=== PATIENT | female | born 1975 | race Caucasian/White ===

== ENCOUNTER 2018-01-20 19:00 | Emergency (ER) | END 2018-01-20 22:28 | disposition home or self-care (01) ==

== ENCOUNTER 2018-06-19 23:27 | Emergency (ER) | payer BC ==
[~2018-06-19] VITALS: Wt 79.3 kg
[~2018-06-19 23:27] MED LIST: ACET325T33 PO; BUTA1CAP39 PO; CEPH-443 PO; DOCU-144 PO; FAMO-96 PO; FER325 PO; FIORICET PO; HYDR-3498 PO; HYDR-3720 PO; IBUP-1542 PO; NAPR-985 PO; PROC10TA10 PO
[2018-06-20] MEDS ORDERED: ONDANSETRON 4 MG INJ IV STA (01:24)
[2018-06-20] MEDS ORDERED: morphine 4 MG/ML VIAL IV STA (01:24)
[2018-06-20] MEDS ORDERED: SOD CHLORIDE 0.9% 1,000 ML IV STA (01:24)
[2018-06-20] MEDS ORDERED: SUCR1TAB56 PO (02:59)
[2018-06-20] MEDS ORDERED: RANI150T35 PO (02:59)
[2018-06-20 03:28] VITALS: BP 110/70; PULSE 87; RESP 18
--- NOTE | 2018-07-30 01:29 | ERD ---
ER Documentation Chief Complaint Chief Complaint EPIGASTRIC PAIN X'S 4 DAYS; HX GASTRITIS HPI Is a very pleasant 43 with epigastric pain for days. Patient has history of gastritis patient feels like previous history of gastritis. Pain is mild to moderate intensity with burning sensation and pain of her stomach. No fevers no chills no nausea no vomiting. No other current complaints. ROS All systems reviewed and are negative except as per history of present illness. Medications Home Meds Active Scripts Ondansetron Hcl* (Zofran*) 4 Mg Tablet, 4 MG PO Q6H PRN for NAUSEA AND OR VOMITING, #20 TAB Prov:MATTHEW KIMBROUGH S. 06/27/18 Naproxen* (Naprosyn*) 500 Mg Tablet, 500 MG PO BID PRN for PAIN AND/OR INFLAMMATION, #30 TAB Prov:XIMENA AGGARWAL PA-C 06/22/18 Hydrocodone/Acetaminophen ([place] 5-325 Tablet) 1 Each Tablet, 1 TAB PO Q6H PRN for PAIN, #7 TAB Prov:XIMENA AGGARWAL PA-C 06/22/18 Cephalexin* (Keflex*) 500 Mg Capsule, 500 MG PO QID for 7 Days, CAP Prov:XIMENA AGGARWAL PA-C 06/22/18 Sulfamethoxazole/Trimethoprim* (Bactrim Ds* Tablet) 1 Each Tablet, 1 TAB PO BID, #14 TAB Prov:XIMENA AGGARWAL PA-C 06/22/18 Ranitidine Hcl* (Zantac*) 150 Mg Tablet, 150 MG PO BID PRN for EPIGASTRIC PAIN, #30 TAB Prov:MICHELLE CABRAL SHarlan 06/20/18 Sucralfate* (Carafate*) 1 Gm Tab, 1 GM PO QID, #60 TAB Prov:MICHELLE CABRAL S. 06/20/18 Allergies Allergies: Coded Allergies: No Known Drug Allergy (Verified Allergy, Unknown, 06/20/18) PMhx/Soc History of Surgery: Yes ([facility],Cholecystectomy, x1) Anesthesia Reaction: No Hx Neurological Disorder: Yes (Migraine HAs) Hx Respiratory Disorders: No Hx Cardiac Disorders: No Hx Psychiatric Problems: No Hx Miscellaneous Medical Probl: No Hx Alcohol Use: No Hx Substance Use: No Hx Tobacco Use: No Smoking Status: Never smoker Physical Exam Physical Exam Const: No acute distress Head: Atraumatic Eyes: Normal Conjunctiva ENT: Normal External Ears, Nose and Mouth. Neck: Full range of motion. No meningismus. Resp: Clear to auscultation bilaterally Cardio: Regular rate and rhythm, no murmurs Abd: Soft, non tender, non distended. Normal bowel sounds Skin: No petechiae or rashes Back: No midline or flank tenderness Ext: No cyanosis, or edema Neur: Awake and alert Psych: Normal Mood and Affect Results 24 hrs Laboratory Tests Test 06/20/18 01:43 White Blood Count 8.0 10^3/ul Red Blood Count 4.21 10^6/ul Hemoglobin 9.2 g/dl Hematocrit 30.9 % Mean Corpuscular Volume 73.4 fl Mean Corpuscular Hemoglobin 21.9 pg Mean Corpuscular Hemoglobin Concent 29.8 g/dl Red Cell Distribution Width 16.5 % Platelet Count 345 10^3/UL Mean Platelet Volume 9.8 fl Immature Granulocytes % 0.300 % Neutrophils % 59.3 % Lymphocytes % 28.1 % Monocytes % 9.5 % Eosinophils % 2.4 % Basophils % 0.4 % Nucleated Red Blood Cells % 0.0 /100WBC Immature Granulocytes # 0.020 10^3/ul Neutrophils # 4.7 10^3/ul Lymphocytes # 2.2 10^3/ul Monocytes # 0.8 10^3/ul Eosinophils # 0.2 10^3/ul Basophils # 0.0 10^3/ul Nucleated Red Blood Cells # 0.0 10^3/ul Urine Color YELLOW Urine Clarity SLIGHTLY CLOUDY Urine pH 7.0 Urine Specific [place] 1.017 Urine Ketones NEGATIVE mg/dL Urine Nitrite NEGATIVE mg/dL Urine Bilirubin NEGATIVE mg/dL Urine Urobilinogen NEGATIVE mg/dL Urine Leukocyte Esterase 3+ Concepcion/ul Urine Microscopic RBC 8 /HPF Urine Microscopic WBC 7 /HPF Urine Squamous Epithelial Cells FEW /HPF Urine Bacteria FEW /HPF Urine Hemoglobin 1+ mg/dL Urine Glucose NEGATIVE mg/dL Urine Total Protein NEGATIVE mg/dl Sodium Level 142 mmol/L Potassium Level 3.7 mmol/L Chloride Level 108 mmol/L Carbon Dioxide Level 26 mmol/L Anion Gap 8 Blood Urea Nitrogen 14 mg/dl Creatinine 0.65 mg/dl Est Glomerular Filtrat Rate mL/min > 60 mL/min Glucose Level 101 mg/dl Calcium Level 8.6 mg/dl Total Bilirubin 0.3 mg/dl Direct Bilirubin 0.00 mg/dl Indirect Bilirubin 0.3 mg/dl Aspartate Amino Transf (AST/SGOT) 17 IU/L Alanine Aminotransferase (ALT/SGPT) 28 IU/L Alkaline Phosphatase 60 IU/L Total Protein 7.0 g/dl Albumin 3.7 g/dl Globulin 3.30 g/dl Albumin/Globulin Ratio 1.12 Lipase 79 U/L Current Medications Medications Dose Sig/David Start Time Status Last (Trade) Ordered Route PRN Stop Time Admin Dose Reason Admin Sodium 1,000 ml @ Q1H STAT 06/20/18 DC 06/20/18 Chloride 1,000 mls/hr IV 01:24 01:39 06/20/18 02:23 Morphine 4 mg ONCE STAT 06/20/18 DC 06/20/18 Sulfate IV 01:24 01:40 (morphine) 06/20/18 01:26 Ondansetron 4 mg ONCE STAT 06/20/18 DC 06/20/18 HCl (Zofran IV 01:24 01:40 Inj) 06/20/18 01:26 Procedures/MDM Patient's gastrointestinal symptoms have stabilized while in the department. No evidence of severe dehydration, sepsis, or surgical abdomen. Extensive discussion with family and patient that occult disease cannot be ruled out. 8 hour recheck for repeat abdominal exam is planned. Departure Diagnosis: Primary Impression: Epigastric pain Condition: Stable Patient Instructions: Gastritis (Adult) MICHELLE CABRAL Jul 30, 2018 01:29
== END 2018-06-20 03:29 | disposition home or self-care (01) ==
LOC: E/R 23:27
DX: R10.13 Epigastric pain (principal)
CPT/HCPCS: 36415; 80053; 81001; 83690; 85025; 96361; 96374; 96375; J2270; J2405; J7030; Z7502

== ENCOUNTER 2018-06-22 11:34 | Emergency (ER) | payer BC ==
[~2018-06-22] VITALS: Wt 74.5 kg
[~2018-06-22 11:34] MED LIST changes: -ACET325T33 PO; -BUTA1CAP39 PO; -CEPH-443 PO; -DOCU-144 PO; -FAMO-96 PO; -FER325 PO; -FIORICET PO; -HYDR-3498 PO; -HYDR-3720 PO; -IBUP-1542 PO; -NAPR-985 PO; -PROC10TA10 PO; +RANI150T35 PO; +SUCR1TAB56 PO
[2018-06-22 11:37] VITALS: BP 120/57; PULSE 100; RESP 20
[2018-06-22] MEDS ORDERED: NAPR-985 PO (12:14)
[2018-06-22] MEDS ORDERED: HYDR-4011 PO (12:14)
[2018-06-22] MEDS ORDERED: SULF1TAB31 PO (12:14)
[2018-06-22] MEDS ORDERED: CEPH-443 PO (12:14)
[2018-06-22] MEDS ORDERED: CEFTRIAXONE 1 GM INJ IM ONE (12:30)
[2018-06-22] MEDS ORDERED: LIDOCAINE 1% (MPF) 5 ML VIAL INJ ONE (12:30)
--- NOTE | 2018-06-22 15:22 | ERD ---
ER Documentation Chief Complaint Chief Complaint R SIDE INGUINAL SWELLING FROM POSSIBLE BITE. NO DRAINAGE. HPI 43-year-old female presenting with inguinal swelling x2 days. Denies any numb ness or tingling but has extensive pain to the right upper thigh. Developed a low-grade fever earlier today. Took ibuprofen 6 hours prior to my evaluation. Denies vomiting. Denies medical problems. NKDA. Surgical history denies. Social history denies ROS All systems reviewed and are negative except as per history of present illness. Medications Home Meds Active Scripts Naproxen* (Naprosyn*) 500 Mg Tablet, 500 MG PO BID PRN for PAIN AND/OR INFLAMM ATION, #30 TAB Prov:XIMENA AGGARWAL PA-C 06/22/18 Hydrocodone/Acetaminophen ([place] 5-325 Tablet) 1 Each Tablet, 1 TAB PO Q6H PRN for PAIN, #7 TAB Prov:XIMENA AGGARWAL PA-C 06/22/18 Cephalexin* (Keflex*) 500 Mg Capsule, 500 MG PO QID for 7 Days, CAP Prov:XIMENA AGGARWAL PA-C 06/22/18 Sulfamethoxazole/Trimethoprim* (Bactrim Ds* Tablet) 1 Each Tablet, 1 TAB PO BID, #14 TAB Prov:XIMENA AGGARWAL PA-C 06/22/18 Ranitidine Hcl* (Zantac*) 150 Mg Tablet, 150 MG PO BID PRN for EPIGASTRIC PAIN, #30 TAB Prov:MICHELLE CABRAL. 06/20/18 Sucralfate* (Carafate*) 1 Gm Tab, 1 GM PO QID, #60 TAB Prov:MICHELLE CABRAL S. 06/20/18 Discontinued Scripts Acetamin/Butalbital/Caffeine* (Fioricet*) [id number] Tab, 1 TAB PO Q6H PRN for PAIN, #30 TAB Prov:DAVIDSON BOLANOS PA-C 01/20/18 Acetamin/Butalbital/Caffeine* (Fioricet*) [id number] Tab, 1 TAB PO Q6H PRN for PAIN, #10 TAB Prov:MARQUIS MISHRA PA-C 01/23/16 Acetamin/Butalbital/Caffeine* (Fioricet*) [id number] Tab, 1 TAB PO Q6H PRN for PAIN, #30 TAB Prov:XIMENA AGGARWAL PA-C 11/27/15 Prochlorperazine* (Prochlorperazine*) 10 Mg Tablet, 10 MG PO Q6 PRN for NAUSEA AND/OR VOMITING, #10 TAB Prov:LEKKOS,APOSTOLOS A. DO 08/14/15 Hydrocodone Bit-Acetaminophen* ([place]*) 7.5-325 Tablet, 2 TAB PO Q4H PRN for PAIN, #20 TAB Prov:LEKKOS,APOSTOLOS A. DO 08/14/15 Naproxen* (Naprosyn*) 500 Mg Tablet, 500 MG PO BID PRN for PAIN AND/OR INFLAMMATION, #30 TAB Prov:JOSE ANTONIO MAS PA-C 06/23/15 Cephalexin* (Keflex*) 500 Mg Capsule, 500 MG PO QID for 5 Days, CAP Prov:MELISSA BORJA METAL MODEL BUILDER 04/20/15 Ibuprofen* (Motrin*) 600 Mg Tab, 600 MG PO Q6H PRN for PAIN AND OR ELEVATED TEMP, #30 TAB Prov:MELISSA BORJA METAL MODEL BUILDER 04/20/15 Hydrocodone Bit-Acetaminophen* ([place]*) 5-325 Mg Tab, 1 TAB PO Q6 PRN for PAIN, #20 TAB Prov:MELISSA BORJA METAL MODEL BUILDER 04/20/15 Docusate Sodium* (Colace*) 100 Mg Capsule, 100 MG PO BID, #30 CAP Prov:XIMENA AGGARWAL PA-C 12/18/14 Ferrous Sulfate* (Ferrous Sulfate*) 325 Mg Tabec, 325 MG PO BID, #30 TAB Prov:XIMENA AGGARWAL PA-C 12/18/14 Acetaminophen* (Tylenol*) 325 Mg Tablet, 2 TAB PO Q8 PRN for PAIN AND OR ELEVATED TEMP, #20 TAB Prov:XIMENA AGGARWAL PA-C 12/18/14 Famotidine* (Pepcid*) 20 Mg Tablet, 20 MG PO BID for 4 Days, TAB Prov:XIMENA AGGARWAL PA-C 12/18/14 Zvgkqbhmzqjvf-Yzximufowq-Ygmaiong-Codeine* (Fioricet w/ Codeine*) [id number] Capsule, 1 CAP PO Q6H PRN for PAIN LEVEL 1-5, #20 CAP Prov:MELISSA BORJAHarlan CARVAJAL 10/13/14 Allergies Allergies: Coded Allergies: No Known Drug Allergy (Verified Allergy, Unknown, 06/20/18) PMhx/Soc History of Surgery: Yes (Appy,Cholecystectomy, x1) Anesthesia Reaction: No Hx Neurological Disorder: Yes (Migraine HAs) Hx Respiratory Disorders: No Hx Cardiac Disorders: No Hx Psychiatric Problems: No Hx Miscellaneous Medical Probl: No Hx Alcohol Use: No Hx Substance Use: No Hx Tobacco Use: No FmHx Family History: No diabetes, No coronary disease, No other Physical Exam Vitals Vital Signs Date Temp Pulse Resp B/P (MAP) Pulse Ox O2 O2 Flow FiO2 Time Delivery Rate 06/22/18 100.0 100 20 120/57 98 11:37 (78) Physical Exam GENERAL: The patient is well-appearing, well-nourished, in no acute distress CHEST: Clear to auscultation bilaterally. There are no rales, wheezes or rhonchi. HEART: Regular rate and rhythm. No murmurs, clicks, rubs or gallops. EXTREMITIES: Equal pulses bilaterally. There is no peripheral clubbing, cyanosis or edema. No focal swelling or erythema. Full range of motion. Grossly neurovascularly intact. NEUROLOGIC: Alert and oriented. Cranial nerves II through XII intact. Motor strength in all 4 extremities with 5 out of 5 strength. Sensation grossly intact. Normal speech and gait. Babinski negative. DTR 2+ throughout. SKIN: Erythema and induration noted to the right upper thigh with no fluctuance. No lymphatic streaking. Results 24 hrs Current Medications Medications Dose Sig/David Start Time Status Last (Trade) Ordered Route PRN Stop Time Admin Dose Reason Admin Ceftriaxone 1 gm ONCE ONCE 06/22/18 DC 06/22/18 Sodium IM 12:30 12:29 (Rocephin) 06/22/18 12:31 Lidocaine 5 ml ONCE ONCE 06/22/18 DC 06/22/18 (Xylocaine INJ 12:30 12:30 1% (Mpf)) 06/22/18 12:31 Procedures/MDM ER course: Rocephin given in ED. MDM: 43-year-old female presenting with abscess. Patient has cellulitis of the right upper thigh. There is no lymphatic streaking and I have low suspicion for sepsis at this time however patient is discharged with oral antibiotics and strict ER precautions. I recommended patient to use warm compresses at home and to return in 2 days. She is told her if symptoms worsen prior to that to return sooner she may need IV antibiotics. Patient will be trialed with oral outpatient antibiotics first. Patient was told she sees lymphatic streaking to return sooner. Patient is discharged with strict ER precautions and told to follow-up with primary care. All questions answered at discharge Departure Diagnosis: Primary Impression: Cellulitis Condition: Stable Patient Instructions: Cellulitis Referrals: [facility] YOU HAVE RECEIVED A MEDICAL SCREENING EXAM AND THE RESULTS INDICATE THAT YOU DO NOT HAVE A CONDITION THAT REQUIRES URGENT TREATMENT IN THE EMERGENCY DEPARTMENT. FURTHER EVALUATION AND TREATMENT OF YOUR CONDITION CAN WAIT UNTIL YOU ARE SEEN IN YOUR DOCTORS OFFICE WITHIN THE NEXT 1-2 DAYS. IT IS YOUR RESPONSIBILITY TO MAKE AN APPOINTMENT FOR [facility]. IF YOU HAVE A PRIMARY DOCTOR --you should call your primary doctor and schedule an appointment IF YOU DO NOT HAVE A PRIMARY DOCTOR YOU CAN CALL OUR PHYSICIAN REFERRAL HOTLINE AT IF YOU CAN NOT AFFORD TO SEE A PHYSICIAN YOU CAN CHOSE FROM THE FOLLOWING [facility] [address] [facility]. [facility] [address] [facility]. [facility] [address] [facility] [facility] [address] [facility]. [facility] [address]. [facility]. [address] Additional Instructions: FOLLOW UP WITH YOUR PRIMARY CARE PHYSICIAN TOMORROW.Return to this facility if you are not improving as expected. XIMENA AGGARWAL PA-C June 22, 2018 15:22
== END 2018-06-22 12:51 | disposition home or self-care (01) ==
LOC: FTE 11:34
DX: L03.115 Cellulitis of right lower limb (principal)
CPT/HCPCS: 96372; J0696; Z7502; Z7610

== ENCOUNTER 2018-06-24 11:31 | Inpatient (IN) | payer BC ==
[~2018-06-24] VITALS: Ht 162.6 cm; Wt 78.6 kg
[~2018-06-24 11:31] MED LIST changes: +CEPH-443 PO; +HYDR-4011 PO; +NAPR-985 PO; +SULF1TAB31 PO
[2018-06-24] MEDS ORDERED: KETOROLAC 30 MG INJ IV STA (12:29)
[2018-06-24] MEDS ORDERED: VANCOMYCIN 1 GM (PMX) 250 ML IVPB ONE (12:30)
[2018-06-24] MEDS ORDERED: PIPER-TAZO 3.375 GM IV (PMX) 100 ML IVPB ONE (12:30)
--- NOTE | 2018-06-24 12:40 | ERD ---
ER Documentation Chief Complaint Chief Complaint for recheck on rt thigh cellulitis HPI Patient is a 43-year-old female with no PMHX who presents the ER for concerns of recheck of right upper thigh cellulitis. Patient was seen here 2 days ago and prescribed Keflex and Bactrim. Patient states that the redness and swelling persist. She states that she has noticed some drainage from the affected area. Patient states she been taking antibiotics as prescribed. Patient states she continues to have a low-grade temperature with T-max of 100 Fahrenheit. Patient does report taking ibuprofen prior to arrival. Patient does admit to shaving the affected area. ROS All systems reviewed and are negative except as per history of present illness. Medications Home Meds Active Scripts Naproxen* (Naprosyn*) 500 Mg Tablet, 500 MG PO BID PRN for PAIN AND/OR INFLAMMATION, #30 TAB Prov:XIMENA AGGARWAL PA-C 06/22/18 Hydrocodone/Acetaminophen ([place] 5-325 Tablet) 1 Each Tablet, 1 TAB PO Q6H PRN for PAIN, #7 TAB Prov:XIMENA AGGARWAL PA-C 06/22/18 Cephalexin* (Keflex*) 500 Mg Capsule, 500 MG PO QID for 7 Days, CAP Prov:XIMENA AGGARWAL PA-C 06/22/18 Sulfamethoxazole/Trimethoprim* (Bactrim Ds* Tablet) 1 Each Tablet, 1 TAB PO BID, #14 TAB Prov:XIMENA AGGARWAL PA-C 06/22/18 Ranitidine Hcl* (Zantac*) 150 Mg Tablet, 150 MG PO BID PRN for EPIGASTRIC PAIN, #30 TAB Prov:MICHELLE CABRAL 06/20/18 Sucralfate* (Carafate*) 1 Gm Tab, 1 GM PO QID, #60 TAB Prov:MICHELLE CABRAL 06/20/18 Discontinued Scripts Acetamin/Butalbital/Caffeine* (Fioricet*) [id number] Tab, 1 TAB PO Q6H PRN for PAIN, #30 TAB Prov:DAVIDSON BOLANOS PA-C 01/20/18 Acetamin/Butalbital/Caffeine* (Fioricet*) [id number] Tab, 1 TAB PO Q6H PRN for PAIN, #10 TAB Prov:MARQUIS MISHRAC 01/23/16 Acetamin/Butalbital/Caffeine* (Fioricet*) [id number] Tab, 1 TAB PO Q6H PRN for PAIN, #30 TAB Prov:XIMENA AGGARWALC 11/27/15 Prochlorperazine* (Prochlorperazine*) 10 Mg Tablet, 10 MG PO Q6 PRN for NAUSEA AND/OR VOMITING, #10 TAB Prov:LEKKOS,APOSTOLOS A. DO 08/14/15 Hydrocodone Bit-Acetaminophen* ([place]*) 7.5-325 Tablet, 2 TAB PO Q4H PRN for PAIN, #20 TAB Prov:LEKKOS,APOSTOLOS A. DO 08/14/15 Naproxen* (Naprosyn*) 500 Mg Tablet, 500 MG PO BID PRN for PAIN AND/OR INFLAMMATION, #30 TAB Prov:JOSE ANTONIO MASC 06/23/15 Cephalexin* (Keflex*) 500 Mg Capsule, 500 MG PO QID for 5 Days, CAP Prov:MELISSA BORJA MANAGER MARKETING COMM[employer]ICATION 04/20/15 Ibuprofen* (Motrin*) 600 Mg Tab, 600 MG PO Q6H PRN for PAIN AND OR ELEVATED TEMP, #30 TAB Prov:MELISSA BORJA MANAGER MARKETING COMMUNICATION 04/20/15 Hydrocodone Bit-Acetaminophen* ([place]*) 5-325 Mg Tab, 1 TAB PO Q6 PRN for PAIN, #20 TAB Prov:MELISSA BORJA MANAGER MARKETING COMMUNICATION 04/20/15 Docusate Sodium* (Colace*) 100 Mg Capsule, 100 MG PO BID, #30 CAP Prov:XIMENA AGGARWAL PA-C 12/18/14 Ferrous Sulfate* (Ferrous Sulfate*) 325 Mg Tabec, 325 MG PO BID, #30 TAB Prov:XIMENA AGGARWAL PA-C 12/18/14 Acetaminophen* (Tylenol*) 325 Mg Tablet, 2 TAB PO Q8 PRN for PAIN AND OR ELEVATED TEMP, #20 TAB Prov:XIMENA AGGARWAL PA-C 12/18/14 Famotidine* (Pepcid*) 20 Mg Tablet, 20 MG PO BID for 4 Days, TAB Prov:KEELY AGGARWALMARKEL Benavides PA-C 12/18/14 Cqowlobyyjvcx-Taaxjmbtaj-Qdbuhbaa-Codeine* (Fioricet w/ Codeine*) [id number] Capsule, 1 CAP PO Q6H PRN for PAIN LEVEL 1-5, #20 CAP Prov:MELISSA BORJA NP 10/13/14 Allergies Allergies: Coded Allergies: No Known Drug Allergy (Verified Allergy, Unknown, 06/20/18) PMhx/Soc History of Surgery: Yes (Appy,Cholecystectomy, x1) Anesthesia Reaction: No Hx Neurological Disorder: Yes (Migraine HAs) Hx Respiratory Disorders: No Hx Cardiac Disorders: No Hx Psychiatric Problems: No Hx Miscellaneous Medical Probl: No Hx Alcohol Use: No Hx Substance Use: No Hx Tobacco Use: No Smoking Status: Never smoker FmHx Family History: No diabetes Physical Exam Vitals Vital Signs Date Temp Pulse Resp B/P (MAP) Pulse Ox O2 O2 Flow FiO2 Time Delivery Rate 06/24/18 97.6 88 18 118/56 99 11:32 (76) Physical Exam GENERAL: Well-developed, well-nourished female. Appears in no acute distress. HEAD: Normocephalic, atraumatic. EYES: Pupils are equally reactive bilaterally. EOMs grossly intact. No conjunctival erythema. NECK: Supple. No meningismus. Normal range of motion of the neck. LUNG: Clear to auscultation bilaterally. No rhonchi, wheezing, rales or coarse breath sounds. HEART: Regular rate and rhythm. No murmurs, rubs or gallops. EXTREMITIES: Equal pulses bilaterally. No peripheral clubbing, cyanosis or e sarah. No unilateral leg swelling. NEUROLOGIC: Alert and oriented. Moving all four extremities without any difficulty. Normal speech. Steady gait. SKIN: Large area of erythema and induration measuring approximately 20 x 20 cm noted on the right upper thigh. Tender fluctuant area noted in the most proximal aspect of the thigh. 2-3 erythematous lesions on the pubic symphysis. No circumferential redness. No streaking. Area is warm to touch. Result Diagram: 06/24/18 1222 06/24/18 1222 Results 24 hrs Laboratory Tests Test 06/24/18 12:22 06/24/18 12:25 06/24/18 12:26 White Blood Count 12.9 10^3/ul Red Blood Count 4.06 10^6/ul Hemoglobin 9.0 g/dl Hematocrit 29.5 % Mean Corpuscular Volume 72.7 fl Mean Corpuscular Hemoglobin 22.2 pg Mean Corpuscular 30.5 g/dl Hemoglobin Concent Red Cell Distribution Width 16.6 % Platelet Count 388 10^3/UL Mean Platelet Volume 9.7 fl Immature Granulocytes % 0.500 % Neutrophils % 74.8 % Lymphocytes % 15.0 % Monocytes % 7.1 % Eosinophils % 2.3 % Basophils % 0.3 % Nucleated Red Blood Cells % 0.0 /100WBC Immature Granulocytes # 0.060 10^3/ul Neutrophils # 9.6 10^3/ul Lymphocytes # 1.9 10^3/ul Monocytes # 0.9 10^3/ul Eosinophils # 0.3 10^3/ul Basophils # 0.0 10^3/ul Nucleated Red Blood Cells # 0.0 10^3/ul Sodium Level 140 mmol/L Potassium Level 3.4 mmol/L Chloride Level 105 mmol/L Carbon Dioxide Level 25 mmol/L Anion Gap 10 Blood Urea Nitrogen 10 mg/dl Creatinine 0.64 mg/dl Est Glomerular Filtrat Rate mL/min > 60 mL/min Glucose Level 95 mg/dl Calcium Level 8.5 mg/dl Total Bilirubin 0.3 mg/dl Direct Bilirubin 0.00 mg/dl Indirect Bilirubin 0.3 mg/dl Aspartate Amino Transf (AST/SGOT) 24 IU/L Alanine 37 IU/L Aminotransferase (ALT/SGPT) Alkaline Phosphatase 164 IU/L Total Protein 7.1 g/dl Albumin 3.5 g/dl Globulin 3.60 g/dl Albumin/Globulin Ratio 0.97 Free Thyroxine 1.59 ng/dl Bedside Urine pH (LAB) 6.5 Bedside Urine Protein (LAB) 2+ Bedside Urine Glucose (UA) Negative Bedside Urine Ketones (LAB) 1+ Bedside Urine Blood Trace-intact Bedside Urine Nitrite (LAB) Negative Bedside Urine Leukocyte Esterase 1+ (L POC Beta HCG, Qualitative NEGATIVE Current Medications Medications Dose Sig/David Start Time Status Last (Trade) Ordered Route PRN Stop Time Admin Dose Reason Admin Piperacillin 100 ml @ ONCE ONCE 06/24/18 DC 06/24/18 Sod/ 200 mls/hr IVPB 12:30 12:53 Tazobactam 06/24/18 12:59 Sod Vancomycin 250 ml @ ONCE ONCE 06/24/18 DC 06/24/18 HCl 125 mls/hr IVPB 12:30 13:42 06/24/18 14:29 Ketorolac 30 mg ONCE STAT 06/24/18 DC 06/24/18 Tromethamine IV 12:29 12:46 (Toradol) 06/24/18 12:31 Sodium 1,000 ml @ Q1H ONCE 06/24/18 DC 06/24/18 Chloride 1,000 mls/hr IV 14:00 13:53 06/24/18 14:59 Procedures/MDM ED COURSE: The patient was stable throughout ED course. I kept the patient and/or family informed of laboratory and diagnostic imaging results throughout the ED course. DIAGNOSTIC IMAGING: Read by radiologist. Patient: KRISTY DOS SANTOS : 1975 Age: 43 Sex: F MR #: [id number] DOS: 06/24/18 1214 Ordering MD: RIGOBERTO BATISTA PA-C Location: [facility] Room/Bed: PROCEDURE: US soft tissues of the right thigh CLINICAL INDICATION: Right thigh redness, swelling TECHNIQUE: Multiple sonographic images of the soft tissues of the right thigh were obtained utilizing a linear array transducer with grayscale and color-flow and a Doppler imaging. The images were reviewed on a high-resolution PACS work station. COMPARISON: No prior studies are available for comparison. FINDINGS: No focal mass or fluid collection visualized. There is soft tissue swelling. RPTAT: AA IMPRESSION: Swelling of the subcutaneous soft tissues with no for focal fluid collection. .Edward Whittington MD, Date Time Electronically viewed and signed by .Edward Whittington MD, MD on 06/24/2018 13:21 .S/ CC: RIGOBERTO BATISTA PA-C [id number] MEDICATIONS GIVEN: IV fluids Toradol, Zosyn, vancomycin Patient tolerated medication well with no adverse reactions. MEDICAL DECISION MAKING: Patient is a 43-year-old female no past medical history presents the ER for concerns of a right upper thigh cellulitis and abscess. Patient was seen here 2 days ago and given Keflex and Bactrim. Patient returns today for recheck. Vital signs were reviewed. Patient is afebrile. Patient was not hypoxic. Pat ient was not tachycardic. Patient was hemodynamically stable. Patient was nontoxic in appearance. On exam, patient continues to have significant redness and swelling to her right upper thigh. Blood work was obtained. Patient WBC count noted to be 12.9. Hemoglobin noted to be 9, hematocrit of 29.5. No indication for emergent blood transfusion at this time. CMP showed no evidence of electrolyte abnormalities, severe acidosis, alkalosis, renal failure, or liver disease. Soft tissue ultrasound showed swelling and subcutaneous soft tissues with no focal fluid collection. Supervising physician Dr. Lambert spoke and examined the patient. He agreed that patient will require admission at this time for concerns of cellulitis as well as abscess. Wound culture was obtained of affected site. Patient was started on vancomycin and Zosyn in ER. Blood cultures were obtained prior to adminstration of antibiotics. Patient will be admitted for IV antibiotics and further work-up and management of her symptoms. Patient was stable throughout ED course. Low suspicion for sepsis. Dr. Lambert will assist with admitting patient to the appropriate hospitalist team. Departure Diagnosis: Primary Impression: Abscess of leg, right Additional Impression: Cellulitis Site of cellulitis: unspecified site Qualified Codes: L03.90 - Cellulitis, unspecified Condition: Fair RIGOBERTO BATISTA PA-C June 24, 2018 12:40
[2018-06-24] MEDS ORDERED: SOD CHLORIDE 0.9% 1,000 ML IV ONE (14:00)
[2018-06-24] MEDS ORDERED: morphine 2 MG INJ IV PRN (15:00)
[2018-06-24] MEDS ORDERED: ALBUTEROL/IPRATROPIUM (NEB) 3 ML AMP HHN PRN (15:00)
[2018-06-24] MEDS ORDERED: NITROGLYCERIN (SL) 0.4 MG TAB SL PRN (15:00)
[2018-06-24] MEDS ORDERED: ONDANSETRON 4 MG INJ IV PRN (15:00)
[2018-06-24] MEDS ORDERED: hydrALAzine 20 MG INJ IV PRN (15:00)
[2018-06-24] MEDS ORDERED: VANCOMYCIN IV PER PHARMACY XX SCH (15:00)
[2018-06-24] MEDS ORDERED: DOCUSATE SODIUM 100 MG CAP PO PRN (15:00)
[2018-06-24] MEDS ORDERED: MAGNESIUM HYDROXIDE 30ML CUP PO PRN (15:00)
[2018-06-24] MEDS ORDERED: HYDROCODONE/APAP (5/325) TAB PO PRN (15:00)
[2018-06-24] MEDS ORDERED: LORAZEPAM 2 MG INJ IV PRN (15:00)
[2018-06-24] MEDS ORDERED: NACL 0.9% 3 ML SYG IV SCH (15:00)
[2018-06-24] MEDS ORDERED: RANITIDINE 150 MG TAB PO PRN (15:00)
--- NOTE | 2018-06-24 16:17 | HP ---
Date/Time of Note Date/Time of Note DATE: 06/24/18 TIME: 16:16 Assessment/Plan VTE Prophylaxis SCD applied (from Nsg): No SCD contraindicated: other Pharmacological prophylaxis: heparin Lines/Catheters IV Catheter Type (from Nrsg): Peripheral IV Assessment/Plan Hospital Course Assessment and plan: 43-year-old female with no PMHX who presents the ER for right lower extremity cellulitis, failing outpatient antibiotic treatment #Right lower extremity cellulitis: Again it appears to be worsening going into the inner thigh area along with ulceration noted now and possible drainage from the affected area. -Admit patient put on broad-spectrum antibiotics, low-dose IV fluids -Follow-up wound culture results, Tylenol PRN pain fevers and also check TSH A1c lipid panel -Trend CBC and follow final culture results and if worsens will consider ID consult at that time -We will also obtain wound nurse consult Result Diagram: 06/24/18 1222 06/24/18 1222 Results 24hrs Laboratory Tests Test 06/24/18 12:22 06/24/18 12:25 06/24/18 12:26 White Blood Count 12.9 #H Red Blood Count 4.06 L Hemoglobin 9.0 L Hematocrit 29.5 L Mean Corpuscular Volume 72.7 L Mean Corpuscular Hemoglobin 22.2 L Mean Corpuscular 30.5 L Hemoglobin Concent Red Cell Distribution Width 16.6 H Platelet Count 388 Mean Platelet Volume 9.7 Immature Granulocytes % 0.500 H Neutrophils % 74.8 Lymphocytes % 15.0 Monocytes % 7.1 Eosinophils % 2.3 Basophils % 0.3 Nucleated Red Blood Cells % 0.0 Immature Granulocytes # 0.060 H Neutrophils # 9.6 H Lymphocytes # 1.9 Monocytes # 0.9 Eosinophils # 0.3 Basophils # 0.0 Nucleated Red Blood Cells # 0.0 Sodium Level 140 Potassium Level 3.4 L Chloride Level 105 Carbon Dioxide Level 25 Anion Gap 10 Blood Urea Nitrogen 10 Creatinine 0.64 Est Glomerular Filtrat > 60 Rate mL/min Glucose Level 95 Calcium Level 8.5 Total Bilirubin 0.3 Direct Bilirubin 0.00 Indirect Bilirubin 0.3 Aspartate Amino Transf (AST/SGOT) 24 Alanine 37 Aminotransferase (ALT/SGPT) Alkaline Phosphatase 164 H Total Protein 7.1 Albumin 3.5 Globulin 3.60 H Albumin/Globulin Ratio 0.97 Free Thyroxine 1.59 Bedside Urine pH (LAB) 6.5 Bedside Urine Protein (LAB) 2+ H Bedside Urine Glucose (UA) Negative Bedside Urine Ketones (LAB) 1+ H Bedside Urine Blood Trace-intact H Bedside Urine Nitrite (LAB) Negative Bedside Urine Leukocyte Esterase 1+ H (L POC Beta HCG, Qualitative NEGATIVE HPI/ROS Admit Date/Time Admit Date/Time June 24, 2018 at 14:15 Hx of Present Illness 43-year-old female with no PMHX who presents the ER for lower extremity redness. The symptoms first started about 4 to 5 days ago. She is also has some subjective fevers at home. She states that she has noticed some drainage from the affected area. Patient came to the emergency room 2 days ago for this and was diagnosed with cellulitis at that time and prescribed Keflex and Bactrim. However despite taking the antibiotics as prescribed, the patient states that the redness and swelling persist. Patient states she continues to have a low- grade temperature with T-max of 100 Fahrenheit. Patient does report taking ibuprofen prior to arrival. Patient does admit to shaving the affected area. The patient came in today she was found white blood cell count 12.9 and was given broad-spectrum antibiotics in the ER today. Denies any chest pain or shortness of breath, no diarrhea constipation, no nausea vomiting. PMH/Family/Social Past Medical History Medications Current Medications IV Flush (NS 3 ml) 3 ml PER PROTOCOL IV ; Start 06/24/18 at 15:00 Ondansetron HCl (Zofran Inj) 4 mg Q6H PRN IV NAUSEA/VOMITING; Start 06/24/18 at 15:00 Acetaminophen (Tylenol Tab) 650 mg Q6H PRN PO .PAIN 1-3 OR TEMP; Start 06/24/18 at 15:00 Acetaminophen/ Hydrocodone Bitart ([place] (5/325)) 1 tab Q6H PRN PO .MOD PAIN 4- 6; Start 06/24/18 at 15:00 Morphine Sulfate (morphine) 2 mg Q4H PRN IV .SEVERE PAIN 7-10; Start 06/24/18 at 15:00 Docusate Sodium (Colace) 100 mg Q12H PRN PO .CONSTIPATION; Start 06/24/18 at 15:00 Magnesium Hydroxide (Milk Of Mag) 30 ml DAILY PRN PO .CONSTIPATION; Start 06/24/18 at 15:00 Heparin Sodium (Porcine) (Heparin (5000 Units/1ml)) 5,000 unit Q12 SC ; Start 06/24/18 at 21:00 Sodium Chloride 1,000 ml @ 75 mls/hr [id number] IV ; Start 06/24/18 at 14:43 Lorazepam (Ativan) 0.5 mg Q6H PRN IV ANXIETY; Start 06/24/18 at 15:00 Albuterol/ Ipratropium (Duoneb) 3 ml Q4H RESP THERAPY PRN HHN SHORTNESS OF BREATH; Start 06/24/18 at 15:00 Piperacillin Sod/ Tazobactam Sod 100 ml @ 200 mls/hr Q6 IVPB ; Start 06/24/18 at 18:00 Vancomycin HCl (Vanco Iv Per Pharmacy) VANCOMYCIN PER PHARMACY NOTE XX ; Start 06/24/18 at 15:00 Hydralazine HCl (Apresoline) 10 mg Q6H PRN IV ELEVATED BLOOD PRESSURE; Start 06/24/18 at 15:00 Nitroglycerin (Nitroglycerin (Sl Tab) 0.4 Mg) 1 tab Q5M PRN SL ANGINA; Start 06/24/18 at 15:00 Ranitidine HCl (Zantac) 150 mg BID PRN PO EPIGASTRIC PAIN; Start 06/24/18 at 15:00 Sucralfate (Carafate) 1 gm QID PO ; Start 06/24/18 at 17:00 Vancomycin HCl 100 ml @ 100 mls/hr ONCE ONCE IVPB ; Start 06/24/18 at 17:00; Stop 06/24/18 at 17:59 Coded Allergies: No Known Drug Allergy (Verified Allergy, Unknown, 06/20/18) Family History Significant Family History: other (Appendectomy, cholecystectomy, x1) Social History Alcohol Use: none Smoking Status: Never smoker Drug Use: none Exam/Review of Systems Vital Signs Vitals Vital Signs Date Temp Pulse Resp B/P (MAP) Pulse Ox O2 O2 Flow FiO2 Time Delivery Rate 06/24/18 97.8 63 18 107/59 99 Room Air 16:07 (75) Exam Exam Gen: Lying in bed, answering questions Head: Atraumatic Eyes: Normal Conjunctiva ENT: Normal External Ears, Nose and Mouth. Neck: Supple Resp: Clear to auscultation bilaterally Cardio: Regular rate and rhythm, no murmurs Abd: Soft, non tender, non distended. Normal bowel sounds Ext: Positive redness right lower extremity on the inner thigh with some mild ulceration on the inner thigh as well Neuro: No focal deficits MATTHEW KIMBROUGH June 24, 2018 16:17
[2018-06-24 16:20] VITALS: Ht 162.6 cm; Wt 78.6 kg
[2018-06-24 16:48] VITALS: BP 103/52; PULSE 85; RESP 18
[2018-06-24] MEDS: SOD CHLORIDE 0.45% 1,000 ML IV SCH (16:51)
[2018-06-24] MEDS: SUCRALFATE 1 GM TAB PO SCH ×2 (16:51→21:18)
[2018-06-24] MEDS ORDERED: VANCOMYCIN 500 MG (PMX) 100 ML IVPB ONE (17:00)
[2018-06-24] MEDS: PIPER-TAZO 3.375 GM IV (PMX) 100 ML IVPB SCH ×2 (17:07→21:20)
[2018-06-24 20:11] VITALS: BP 98/54; PULSE 82; RESP 20
[2018-06-24] MEDS: HEPARIN 5,000 UNIT/1 ML VIAL SC SCH (21:19)
[2018-06-25 01:54] VITALS: BP 99/56; PULSE 93; RESP 18
[2018-06-25] MEDS: SOD CHLORIDE 0.45% 1,000 ML IV SCH ×2 (04:03→14:04)
[2018-06-25] MEDS: VANCOMYCIN HCL 1.25 GM in SOD CHLORIDE 0.9% 250 ML IVPB SCH ×2 (04:07→15:51)
[2018-06-25] MEDS: PIPER-TAZO 3.375 GM IV (PMX) 100 ML IVPB SCH ×4 (05:10→21:01)
[2018-06-25 08:00] VITALS: BP 97/58; PULSE 91; RESP 18
[2018-06-25] MEDS: SUCRALFATE 1 GM TAB PO SCH ×4 (08:25→20:59)
[2018-06-25] MEDS: HEPARIN 5,000 UNIT/1 ML VIAL SC SCH ×2 (08:27→21:00)
[2018-06-25 14:00] VITALS: BP 106/56; PULSE 78; RESP 17
--- NOTE | 2018-06-25 16:28 | PN ---
Date/Time of Note Date/Time of Note DATE: 06/25/18 TIME: 16:25 Assessment/Plan VTE Prophylaxis Risk score (from Ns)>0 risk: 1 [place] [facility] [place] contraindicated: other Pharmacological prophylaxis: heparin Lines/Catheters IV [facility]ter Type (from [facility]): Peripheral IV Urinary Cath still in place: No Assessment/Plan Hospital Course S: Patient still antibiotics, no fevers overnight. O: VS- see below PE: Gen: Lying in bed, answering questions Head: Atraumatic Eyes: Normal Conjunctiva ENT: Normal External Ears, Nose and Mouth. Neck: Supple Resp: Clear to auscultation bilaterally Cardio: Regular rate and rhythm, no murmurs Abd: Soft, non tender, non distended. Normal bowel sounds Ext: Positive redness right lower extremity on the inner thigh with some mild drainage and ulceration on the inner thigh as well Neuro: No focal deficits Assessment and plan: 43-year-old female with no PMHX who presents the ER for right lower extremity cellulitis, failing outpatient antibiotic treatment #Right lower extremity cellulitis: Again it appears to be worsening going into the inner thigh area along with ulceration noted now and possible drainage from the affected area. White blood cell count is improved, there is positive wound culture for staph growth preliminary. -For now continue broad-spectrum antibiotics, low-dose IV fluids -Follow-up final wound culture results, Tylenol PRN pain fevers -Trend CBC and follow final culture results; and if worsens will consider ID consult at that time -Follow-up further recommendations from wound nurse consult # DVT ppx-heparin subcu Result Diagram: 06/25/18 0604 06/25/18 0604 Results 24hrs Laboratory Tests Test 06/25/18 06:04 06/25/18 06:05 White Blood Count 7.2 # Red Blood Count 3.48 L Hemoglobin 7.7 L Hematocrit 25.7 L Mean Corpuscular Volume 73.9 L Mean Corpuscular Hemoglobin 22.1 L Mean Corpuscular Hemoglobin Concent 30.0 L Red Cell Distribution Width 17.0 H Platelet Count 360 Mean Platelet Volume 10.1 Immature Granulocytes % 0.600 H Neutrophils % 63.5 Lymphocytes % 24.8 Monocytes % 6.9 Eosinophils % 3.6 Basophils % 0.6 Nucleated Red Blood Cells % 0.0 Immature Granulocytes # 0.040 H Neutrophils # 4.6 Lymphocytes # 1.8 Monocytes # 0.5 Eosinophils # 0.3 Basophils # 0.0 Nucleated Red Blood Cells # 0.0 Sodium Level 140 Potassium Level 3.7 Chloride Level 110 Carbon Dioxide Level 23 Anion Gap 7 Blood Urea Nitrogen 13 Creatinine 0.58 Est Glomerular Filtrat Rate mL/min > 60 Glucose Level 79 Calcium Level 7.6 L Phosphorus Level 3.8 Magnesium Level 2.3 Hemoglobin A1c 5.9 Triglycerides Level 141 Cholesterol Level 126 LDL Cholesterol, Calculated 77 HDL Cholesterol 21 L Cholesterol/HDL Ratio 6.0 Thyroid Stimulating Hormone (TSH) 0.904 Exam/Review of Systems Exam Vitals Vital Signs Date Temp Pulse Resp B/P (MAP) Pulse Ox O2 O2 Flow FiO2 Time Delivery Rate 06/25/18 97.8 78 17 106/56 97 Room Air 14:00 (73) Intake and Output 06/24/18 06/24/18 06/25/18 1515:00 23:00 07:00 IntakeIntake Total 100 ml 1610 ml BalanceBalance 100 ml 1610 ml Results Results 24hrs Laboratory Tests Test 06/25/18 06:04 06/25/18 06:05 White Blood Count 7.2 # Red Blood Count 3.48 L Hemoglobin 7.7 L Hematocrit 25.7 L Mean Corpuscular Volume 73.9 L Mean Corpuscular Hemoglobin 22.1 L Mean Corpuscular Hemoglobin Concent 30.0 L Red Cell Distribution Width 17.0 H Platelet Count 360 Mean Platelet Volume 10.1 Immature Granulocytes % 0.600 H Neutrophils % 63.5 Lymphocytes % 24.8 Monocytes % 6.9 Eosinophils % 3.6 Basophils % 0.6 Nucleated Red Blood Cells % 0.0 Immature Granulocytes # 0.040 H Neutrophils # 4.6 Lymphocytes # 1.8 Monocytes # 0.5 Eosinophils # 0.3 Basophils # 0.0 Nucleated Red Blood Cells # 0.0 Sodium Level 140 Potassium Level 3.7 Chloride Level 110 Carbon Dioxide Level 23 Anion Gap 7 Blood Urea Nitrogen 13 Creatinine 0.58 Est Glomerular Filtrat Rate mL/min > 60 Glucose Level 79 Calcium Level 7.6 L Phosphorus Level 3.8 Magnesium Level 2.3 Hemoglobin A1c 5.9 Triglycerides Level 141 Cholesterol Level 126 LDL Cholesterol, Calculated 77 HDL Cholesterol 21 L Cholesterol/HDL Ratio 6.0 Thyroid Stimulating Hormone (TSH) 0.904 Medications Medication Current Medications IV Flush (NS 3 ml) 3 ml PER PROTOCOL IV ; Start 06/24/18 at 15:00 Ondansetron HCl (Zofran Inj) 4 mg Q6H PRN IV NAUSEA/VOMITING; Start 06/24/18 at 15:00 Acetaminophen (Tylenol Tab) 650 mg Q6H PRN PO .PAIN 1-3 OR TEMP; Start 06/24/18 at 15:00 Acetaminophen/ Hydrocodone Bitart ([place] (5/325)) 1 tab Q6H PRN PO .MOD PAIN 4- 6 Last administered on 06/24/18at 16:52; Admin Dose 1 TAB; Start 06/24/18 at 15:00 Morphine Sulfate (morphine) 2 mg Q4H PRN IV .SEVERE PAIN 7-10; Start 06/24/18 at 15:00 Docusate Sodium (Colace) 100 mg Q12H PRN PO .CONSTIPATION; Start 06/24/18 at 15:00 Magnesium Hydroxide (Milk Of Mag) 30 ml DAILY PRN PO .CONSTIPATION; Start 06/24/18 at 15:00 Heparin Sodium (Porcine) (Heparin (5000 Units/1ml)) 5,000 unit Q12 SC Last administered on 06/25/18at 08:27; Admin Dose 5,000 UNIT; Start 06/24/18 at 21:00 Sodium Chloride 1,000 ml @ 75 mls/hr [id number] IV Last administered on 06/25/18at 14:04; Admin Dose 75 MLS/HR; Start 06/24/18 at 14:43 Lorazepam (Ativan) 0.5 mg Q6H PRN IV ANXIETY; Start 06/24/18 at 15:00 Albuterol/ Ipratropium (Duoneb) 3 ml Q4H RESP THERAPY PRN HHN SHORTNESS OF BREATH; Start 06/24/18 at 15:00 Vancomycin HCl (Vanco Iv Per Pharmacy) VANCOMYCIN PER PHARMACY NOTE XX ; Start 06/24/18 at 15:00 Hydralazine HCl (Apresoline) 10 mg Q6H PRN IV ELEVATED BLOOD PRESSURE; Start 06/24/18 at 15:00 Nitroglycerin (Nitroglycerin (Sl Tab) 0.4 Mg) 1 tab Q5M PRN SL ANGINA; Start 06/24/18 at 15:00 Ranitidine HCl (Zantac) 150 mg BID PRN PO EPIGASTRIC PAIN; Start 06/24/18 at 15:00 Sucralfate (Carafate) 1 gm QID PO Last administered on 06/25/18at 14:03; Admin Dose 1 GM; Start 06/24/18 at 17:00 Vancomycin HCl 1.25 gm/Sodium Chloride 250 ml @ 83.333 mls/ hr Q12H IVPB Last administered on 06/25/18at 15:51; Admin Dose 83.333 MLS/HR; Start 06/25/18 at 04:00 Piperacillin Sod/ Tazobactam Sod 100 ml @ 200 mls/hr Q6H IVPB Last administered on 06/25/18at 14:03; Admin Dose 200 MLS/HR; Start 06/25/18 at 08:00 Miscellaneous Information (*Rx Drug Level Order Reminder*) 1 0300 ONCE XX ; Start 06/26/18 at 03:00; Stop 06/26/18 at 03:01 MATTHEW KIMBROUGH June 25, 2018 16:28
[2018-06-25 20:00] VITALS: BP 104/56; PULSE 89; RESP 18
[2018-06-25] MEDS: ACETAMINOPHEN 325 MG TAB PO PRN (23:16)
[2018-06-26 02:00] VITALS: BP 102/51; PULSE 82; RESP 17
[2018-06-26] MEDS: PIPER-TAZO 3.375 GM IV (PMX) 100 ML IVPB SCH ×4 (02:22→21:42)
[2018-06-26] MEDS: VANCOMYCIN HCL 1.25 GM in SOD CHLORIDE 0.9% 250 ML IVPB SCH (04:04)
[2018-06-26] MEDS: SOD CHLORIDE 0.45% 1,000 ML IV SCH ×2 (05:32→20:03)
[2018-06-26 07:50] VITALS: BP 99/54; PULSE 65; RESP 18
[2018-06-26] MEDS: SUCRALFATE 1 GM TAB PO SCH ×4 (09:24→21:42)
[2018-06-26] MEDS: HEPARIN 5,000 UNIT/1 ML VIAL SC SCH (09:29)
[2018-06-26] MEDS: VANCOMYCIN 1 GM 250 ML IVPB SCH ×2 (11:52→22:32)
[2018-06-26 14:12] VITALS: BP 92/50; PULSE 89; RESP 18
--- NOTE | 2018-06-26 14:23 | PN ---
Date/Time of Note Date/Time of Note DATE: 06/26/18 TIME: 14:22 Assessment/Plan VTE Prophylaxis Risk score (from Ns)>0 risk: 1 SCD applied (from Ns): No SCD contraindicated: other Pharmacological prophylaxis: LMWH Lines/Catheters IV C[facility]ter Type (from [facility] Peripheral IV Urinary Cath still in place: No Assessment/Plan Hospital Course S: Patient overall feels better the last couple of days, but had some nausea symptoms this morning, relieved with IV Zofran. O: VS- see below PE: Gen: Lying in bed, answering questions Head: Atraumatic Eyes: Normal Conjunctiva ENT: Normal External Ears, Nose and Mouth. Neck: Supple Resp: Clear to auscultation bilaterally Cardio: Regular rate and rhythm, no murmurs Abd: Soft, non tender, non distended. Normal bowel sounds Ext: Less in appearance, but still some positive redness right lower extremity on the inner thigh with some mild drainage and ulceration on the inner thigh as well Neuro: No focal deficits Assessment and plan: 43-year-old female with no PMHX who presents the ER for right lower extremity cellulitis, failing outpatient antibiotic treatment. #Right lower extremity cellulitis: Again it appears to be worsening going into the inner thigh area along with ulceration noted now and possible drainage from the affected area. White blood cell count is improved; positive wound culture for staph growth preliminary. -For now continue broad-spectrum antibiotics, low-dose IV fluids -Follow-up final wound culture results, Tylenol PRN pain fevers -Trend CBC and follow final culture results; and if worsens will consider ID consult at that time -Follow-up further recommendations from wound nurse consult #Microcytic anemia: MCV is low and iron levels are low. Hemoglobin is stable -Monitor CBC, will order for IV iron as well today # DVT ppx Lovenox Result Diagram: 06/26/18 0251 06/26/18 0251 Results 24hrs Laboratory Tests Test 06/25/18 17:41 06/26/18 02:51 Hemoglobin 8.3 L 8.2 L Hematocrit 27.6 L 26.8 L White Blood Count 5.1 # Red Blood Count 3.64 L Mean Corpuscular Volume 73.6 L Mean Corpuscular Hemoglobin 22.5 L Mean Corpuscular Hemoglobin Concent 30.6 L Red Cell Distribution Width 16.4 H Platelet Count 393 Mean Platelet Volume 9.5 Immature Granulocytes % 1.000 H Neutrophils % 58.9 Lymphocytes % 28.1 Monocytes % 5.9 Eosinophils % 5.9 Basophils % 0.2 Nucleated Red Blood Cells % 0.0 Immature Granulocytes # 0.050 H Neutrophils # 3.0 Lymphocytes # 1.4 Monocytes # 0.3 Eosinophils # 0.3 Basophils # 0.0 Nucleated Red Blood Cells # 0.0 Sodium Level 139 Potassium Level 3.8 Chloride Level 110 Carbon Dioxide Level 25 Anion Gap 4 L Blood Urea Nitrogen 10 Creatinine 0.60 Est Glomerular Filtrat Rate mL/min > 60 Glucose Level 115 Calcium Level 7.5 L Vancomycin Level Trough 8.2 L Exam/Review of Systems Exam Vitals Vital Signs Date Temp Pulse Resp B/P (MAP) Pulse Ox O2 O2 Flow FiO2 Time Delivery Rate 06/26/18 97.8 65 18 99/54 (69) 100 Room Air 07:50 Intake and Output 06/25/18 06/25/18 06/26/18 1515:00 23:00 07:00 IntakeIntake Total 1450 ml 760 ml 1275 ml BalanceBalance 1450 ml 760 ml 1275 ml Results Results 24hrs Laboratory Tests Test 06/25/18 17:41 06/26/18 02:51 Hemoglobin 8.3 L 8.2 L Hematocrit 27.6 L 26.8 L White Blood Count 5.1 # Red Blood Count 3.64 L Mean Corpuscular Volume 73.6 L Mean Corpuscular Hemoglobin 22.5 L Mean Corpuscular Hemoglobin Concent 30.6 L Red Cell Distribution Width 16.4 H Platelet Count 393 Mean Platelet Volume 9.5 Immature Granulocytes % 1.000 H Neutrophils % 58.9 Lymphocytes % 28.1 Monocytes % 5.9 Eosinophils % 5.9 Basophils % 0.2 Nucleated Red Blood Cells % 0.0 Immature Granulocytes # 0.050 H Neutrophils # 3.0 Lymphocytes # 1.4 Monocytes # 0.3 Eosinophils # 0.3 Basophils # 0.0 Nucleated Red Blood Cells # 0.0 Sodium Level 139 Potassium Level 3.8 Chloride Level 110 Carbon Dioxide Level 25 Anion Gap 4 L Blood Urea Nitrogen 10 Creatinine 0.60 Est Glomerular Filtrat Rate mL/min > 60 Glucose Level 115 Calcium Level 7.5 L Vancomycin Level Trough 8.2 L Medications Medication Current Medications IV Flush (NS 3 ml) 3 ml PER PROTOCOL IV ; Start 06/24/18 at 15:00 Ondansetron HCl (Zofran Inj) 4 mg Q6H PRN IV NAUSEA/VOMITING Last administered on 06/26/18at 13:06; Admin Dose 4 MG; Start 06/24/18 at 15:00 Acetaminophen (Tylenol Tab) 650 mg Q6H PRN PO .PAIN 1-3 OR TEMP Last administered on 06/25/18at 23:16; Admin Dose 650 MG; Start 06/24/18 at 15:00 Acetaminophen/ Hydrocodone Bitart ([place] (5/325)) 1 tab Q6H PRN PO .MOD PAIN 4- 6 Last administered on 06/24/18at 16:52; Admin Dose 1 TAB; Start 06/24/18 at 15:00 Morphine Sulfate (morphine) 2 mg Q4H PRN IV .SEVERE PAIN 7-10; Start 06/24/18 at 15:00 Docusate Sodium (Colace) 100 mg Q12H PRN PO .CONSTIPATION; Start 06/24/18 at 15:00 Magnesium Hydroxide (Milk Of Mag) 30 ml DAILY PRN PO .CONSTIPATION; Start 06/24/18 at 15:00 Heparin Sodium (Porcine) (Heparin (5000 Units/1ml)) 5,000 unit Q12 SC Last administered on 06/26/18at 09:29; Admin Dose 5,000 UNIT; Start 06/24/18 at 21:00 Sodium Chloride 1,000 ml @ 75 mls/hr [id number] IV Last administered on 06/26/18at 05:32; Admin Dose 75 MLS/HR; Start 06/24/18 at 14:43 Lorazepam (Ativan) 0.5 mg Q6H PRN IV ANXIETY; Start 06/24/18 at 15:00 Albuterol/ Ipratropium (Duoneb) 3 ml Q4H RESP THERAPY PRN HHN SHORTNESS OF BREATH; Start 06/24/18 at 15:00 Vancomycin HCl (Vanco Iv Per Pharmacy) VANCOMYCIN PER PHARMACY NOTE XX ; Start 06/24/18 at 15:00 Hydralazine HCl (Apresoline) 10 mg Q6H PRN IV ELEVATED BLOOD PRESSURE; Start 06/24/18 at 15:00 Nitroglycerin (Nitroglycerin (Sl Tab) 0.4 Mg) 1 tab Q5M PRN SL ANGINA; Start 06/24/18 at 15:00 Ranitidine HCl (Zantac) 150 mg BID PRN PO EPIGASTRIC PAIN; Start 06/24/18 at 15:00 Sucralfate (Carafate) 1 gm QID PO Last administered on 06/26/18at 13:01; Admin Dose 1 GM; Start 06/24/18 at 17:00 Piperacillin Sod/ Tazobactam Sod 100 ml @ 200 mls/hr Q6H IVPB Last administered on 06/26/18at 14:17; Admin Dose 200 MLS/HR; Start 06/25/18 at 08:00 Vancomycin HCl 250 ml @ 125 mls/hr Q8H IVPB Last administered on 06/26/18at 11:52; Admin Dose 125 MLS/HR; Start 06/26/18 at 12:00 Ferric Sodium Gluconate Complex 125 mg/Sodium Chloride 100 ml @ 100 mls/hr DAILY@1300 IVPB ; Start 06/26/18 at 15:00; Stop 06/28/18 at 13:59 MATTHEW KIMBROUGH June 26, 2018 14:23
[2018-06-26] MEDS ORDERED: TRIMETHOBENZAMIDE 100 MG/ML VIAL IM PRN (14:30)
[2018-06-26 14:56] VITALS: BP 96/52; PULSE 80
[2018-06-26] MEDS: SOD FERRIC GLUC COMPLX 125 MG in SOD CHLORIDE 0.9% 100 ML IVPB SCH (15:13)
[2018-06-26 19:59] VITALS: BP 95/52; PULSE 88; RESP 20
[2018-06-26] MEDS: ACETAMINOPHEN 325 MG TAB PO PRN (22:31)
[2018-06-27 02:04] VITALS: BP 90/52; PULSE 86; RESP 18
[2018-06-27] MEDS: PIPER-TAZO 3.375 GM IV (PMX) 100 ML IVPB SCH ×3 (02:05→13:58)
[2018-06-27] MEDS: VANCOMYCIN 1 GM 250 ML IVPB SCH ×2 (04:04→11:45)
[2018-06-27 08:00] VITALS: BP 106/51; PULSE 76; RESP 20
[2018-06-27] MEDS: SUCRALFATE 1 GM TAB PO SCH ×2 (08:13→13:08)
[2018-06-27] MEDS ORDERED: ENOXAPARIN 30 MG/0.3 ML SYG SC SCH (09:00)
[2018-06-27] MEDS: SOD CHLORIDE 0.45% 1,000 ML IV SCH ×2 (09:23→13:08)
[2018-06-27 14:00] VITALS: BP 101/64; PULSE 65; RESP 20
--- NOTE | 2018-06-27 14:38 | PDOCDIS ---
Discharge Instructions CONDITION [id number] Patient Condition: [id number] Stable HOME CARE INSTRUCTIONS: [id number] Diet Instructions: [id number] Low Fat /Cholesterol ACTIVITY: [id number] Activity Restrictions: [id number] Slowly Increase Activity Rest between Activity Avoid heavy lifting FOLLOW UP/APPOINTMENTS Follow-up Plan Please take your medications as prescribed, see your doctor in clinic in the next 1 week. MATTHEW KIMBROUGH June 27, 2018 14:38
[2018-06-27] MEDS ORDERED: ONDA4TAB8 PO (14:39)
--- NOTE | 2018-06-27 14:42 | DS ---
Date/Time of Note Date/Time of Note DATE: 06/27/18 TIME: 14:40 Discharge Summary Admission/Discharge Info Admit Date/Time June 24, 2018 at 14:15 Discharge Date/Time Discharge Diagnosis #Right lower extremity cellulitis: Improving with IV antibiotics, wound culture positive for staph aureus. #Microcytic anemia: Status post IV iron treatment Patient Condition: Stable Hx of Present Illness 43-year-old female with no PMHX who presents the ER for lower extremity redness. The symptoms first started about 4 to 5 days ago. She is also has some subjective fevers at home. She states that she has noticed some drainage from the affected area. Patient came to the emergency room 2 days ago for this and was diagnosed with cellulitis at that time and prescribed Keflex and Bactrim. However despite taking the antibiotics as prescribed, the patient states that the redness and swelling persist. Patient states she continues to have a low- grade temperature with T-max of 100 Fahrenheit. Patient does report taking ibuprofen prior to arrival. Patient does admit to shaving the affected area. The patient came in today she was found white blood cell count 12.9 and was given broad-spectrum antibiotics in the ER today. Denies any chest pain or shortness of breath, no diarrhea constipation, no nausea vomiting. Hospital Course Patient was admitted found with inner thigh cellulitis. The leukocytosis improved with antibiotic treatment. Patient had no fevers. She did have some nausea symptoms that were controlled with antiemetic medications. Over the course of her hospital stay her cellulitis slowly improved. Her wound culture was positive for staph aureus sensitive to most antibiotics. She was able to ambulate, tolerated p.o. diet. She is also found with microcytic anemia, specifically iron deficiency anemia and given IV iron treatment doses which helped control her iron levels, although hemoglobin was stable. Patient will be discharged home today in improved condition and will continue p.o. antibiotics for the next 5 to 7 days to complete the cellulitis treatment. See below for full list of discharge medications. Home Meds Active Scripts Ondansetron Hcl* (Zofran*) 4 Mg Tablet, 4 MG PO Q6H PRN for NAUSEA AND OR VOMITING, #20 TAB Prov:MATTHEW KIMBROUGH 06/27/18 Naproxen* (Naprosyn*) 500 Mg Tablet, 500 MG PO BID PRN for PAIN AND/OR INFLAMMATION, #30 TAB Prov:XIMENA AGGARWAL PA-C 06/22/18 Hydrocodone/Acetaminophen ([place] 5-325 Tablet) 1 Each Tablet, 1 TAB PO Q6H PRN for PAIN, #7 TAB Prov:XIMENA AGGARWAL PA-C 06/22/18 Cephalexin* (Keflex*) 500 Mg Capsule, 500 MG PO QID for 7 Days, CAP Prov:XIMENA AGGARWAL PA-C 06/22/18 Sulfamethoxazole/Trimethoprim* (Bactrim Ds* Tablet) 1 Each Tablet, 1 TAB PO BID, #14 TAB Prov:XIMENA AGGARWAL PA-C 06/22/18 Ranitidine Hcl* (Zantac*) 150 Mg Tablet, 150 MG PO BID PRN for EPIGASTRIC PAIN, #30 TAB Prov:MICHELLE CABRAL. 06/20/18 Sucralfate* (Carafate*) 1 Gm Tab, 1 GM PO QID, #60 TAB Prov:MICHELLE CABRAL S. 06/20/18 Discontinued Scripts Acetamin/Butalbital/Caffeine* (Fioricet*) [id number] Tab, 1 TAB PO Q6H PRN for PAIN, #30 TAB Prov:DAVIDSON BOLANOS PA-C 01/20/18 Acetamin/Butalbital/Caffeine* (Fioricet*) [id number] Tab, 1 TAB PO Q6H PRN for PAIN, #10 TAB Prov:MARQUIS MISHRA PA-C 01/23/16 Acetamin/Butalbital/Caffeine* (Fioricet*) [id number] Tab, 1 TAB PO Q6H PRN for PAIN, #30 TAB Prov:XIMENA AGGARWAL PA-C 11/27/15 Prochlorperazine* (Prochlorperazine*) 10 Mg Tablet, 10 MG PO Q6 PRN for NAUSEA AND/OR VOMITING, #10 TAB Prov:ARGENTINA JENNINGS DO 08/14/15 Hydrocodone Bit-Acetaminophen* ([place]*) 7.5-325 Tablet, 2 TAB PO Q4H PRN for PAIN, #20 TAB Prov:ARGENTINA JENNINGS DO 08/14/15 Naproxen* (Naprosyn*) 500 Mg Tablet, 500 MG PO BID PRN for PAIN AND/OR INFLAMMATION, #30 TAB Prov:JOSE ANTONIO MAS PA-C 06/23/15 Cephalexin* (Keflex*) 500 Mg Capsule, 500 MG PO QID for 5 Days, CAP Prov:MELISSA BORJA NP 04/20/15 Ibuprofen* (Motrin*) 600 Mg Tab, 600 MG PO Q6H PRN for PAIN AND OR ELEVATED TEMP, #30 TAB Prov:MELISSA BORJA NP 04/20/15 Hydrocodone Bit-Acetaminophen* ([place]*) 5-325 Mg Tab, 1 TAB PO Q6 PRN for PAIN, #20 TAB Prov:MELISSA BORJA NP 04/20/15 Docusate Sodium* (Colace*) 100 Mg Capsule, 100 MG PO BID, #30 CAP Prov:XIMENA AGGARWAL PA-C 12/18/14 Ferrous Sulfate* (Ferrous Sulfate*) 325 Mg Tabec, 325 MG PO BID, #30 TAB Prov:XIMENA AGGARWAL PA-C 12/18/14 Acetaminophen* (Tylenol*) 325 Mg Tablet, 2 TAB PO Q8 PRN for PAIN AND OR ELEVATED TEMP, #20 TAB Prov:XIMENA AGGARWAL PA-C 12/18/14 Famotidine* (Pepcid*) 20 Mg Tablet, 20 MG PO BID for 4 Days, TAB Prov:XIMENA AGGARWAL PA-C 12/18/14 Ubzkykgfmsulv-Wdbfvgdgmm-Ejzulrfe-Codeine* (Fioricet w/ Codeine*) 300MG- [id number] Capsule, 1 CAP PO Q6H PRN for PAIN LEVEL 1-5, #20 CAP Prov:MELISSA BORJA NP 10/13/14 Follow-up Plan Please take your medications as prescribed, see your doctor in clinic in the next 1 week. Primary Care Provider Not On Staff Doctor Time spent on discharge: > 30 minutes Pending Labs Laboratory Tests Test 5/23/19 05:41 White Blood Count 8.2 10^3/ul (4.8-10.8) Red Blood Count 4.02 10^6/ul (4.20-5.40) Hemoglobin 8.9 g/dl (12.0-16.0) Hematocrit 29.6 % (37.0-47.0) Mean Corpuscular Volume 73.6 fl (82.0-101.0) Mean Corpuscular Hemoglobin 22.1 pg (29.0-33.0) Mean Corpuscular Hemoglobin Concent 30.1 g/dl (32.0-37.0) Red Cell Distribution Width 16.8 % (11.5-14.5) Platelet Count 404 10^3/UL (140-415) Mean Platelet Volume 9.3 fl (7.4-10.4) Immature Granulocytes % 1.100 % (0.001-0.429) Neutrophils % 66.4 % (39.0-77.0) Lymphocytes % 18.8 % (15.0-51.0) Monocytes % 6.9 % (0.0-11.0) Eosinophils % 6.7 % (0.0-7.0) Basophils % 0.1 % (0.0-2.0) Nucleated Red Blood Cells % 0.0 /100WBC (0.0-0.0) Immature Granulocytes # 0.090 10^3/ul (0.0-0.031) Neutrophils # 5.4 10^3/ul (1.6-7.5) Lymphocytes # 1.5 10^3/ul (0.8-2.9) Monocytes # 0.6 10^3/ul (0.3-0.9) Eosinophils # 0.6 10^3/ul (0.0-0.5) Basophils # 0.0 10^3/ul (0.0-0.1) Nucleated Red Blood Cells # 0.0 10^3/ul (0.0-0.0) Sodium Level 143 mmol/L (135-144) Potassium Level 3.7 mmol/L (3.5-5.1) Chloride Level 111 mmol/L (97-110) Carbon Dioxide Level 26 mmol/L (21-31) Anion Gap 6 (5-13) Blood Urea Nitrogen 5 mg/dl (7-20) Creatinine 0.87 mg/dl (0.44-1.00) Est Glomerular Filtrat Rate mL/min > 60 mL/min (>60) Glucose Level 93 mg/dl (70-220) Calcium Level 7.8 mg/dl (8.4-10.2) MATTHEW KIMBROUGH June 27, 2018 14:42
[2018-06-27] MEDS: SOD FERRIC GLUC COMPLX 125 MG in SOD CHLORIDE 0.9% 100 ML IVPB SCH (15:09)
== END 2018-06-27 17:14 | disposition home or self-care (01) | DRG 603 ==
LOC: FTE 11:31 → PP2 14:15 → SUATTDRO 14:42
PROVIDERS: ADMIT Hospitalist; ATTEND Hospitalist
DX: L03.115 Cellulitis of right lower limb (principal); B95.61 Methicillin susceptible Staphylococcus aureus infection as the cause of diseases classified elsewhere; D50.9 Iron deficiency anemia, unspecified
CPT/HCPCS: 36415; 76536; 80048; 80053; 80061; 80202; 81003; 81025; 83036; 83540; 83735; 84100; 84439; 84443; 85014; 85018; 85025; 87070; 96365; 96367; 96375; J1644; J1650; J1885; J2405; J2543; J2916; J3370; J7030; J7050